=== PATIENT | male | born 1935 | race Native Hawaiian/Other Pacific Islander ===

== ENCOUNTER 2016-10-07 07:50 | Outpatient (CLI) | payer OTHER ==
[~2016-10-07 07:50] MED LIST: ALPR0.5T24 PO; AMOX500C85 PO; FLUT0.05 NAS; GUAI600T70 PO; NEXIUM40 M1 OR; PAXIL10 MG PO
== END 2016-10-07 19:19 | disposition home or self-care (01) ==
LOC: LABW 07:50
PROVIDERS: Internal Medicine
DX: I25.10 Atherosclerotic heart disease of native coronary artery without angina pectoris (principal)
CPT/HCPCS: 36415; 80061

== ENCOUNTER 2017-04-15 14:49 | Outpatient (CLI) | payer OTHER ==
[2017-04-15 15:52] LABS: PLATELET COUNT 154 K/uL (142-355)
[2017-04-15 16:24] LABS: POTASSIUM 4.9 mmol/L (3.6-5.2); SODIUM 137 mmol/L (136-145)
== END 2017-04-15 19:14 | disposition home or self-care (01) ==
LOC: LAB 14:49
PROVIDERS: Internal Medicine
DX: I25.10 Atherosclerotic heart disease of native coronary artery without angina pectoris (principal); F03.90 Unspecified dementia, unspecified severity, without behavioral disturbance, psychotic disturbance, mood disturbance, and anxiety
CPT/HCPCS: 80053; 80061; 81000; 84443; 85027

== ENCOUNTER 2017-12-29 08:21 | Outpatient (CLI) | payer OTHER ==
[2017-12-29 08:59] LABS: PLATELET COUNT 151 K/uL (142-355)
== END 2017-12-29 19:47 | disposition home or self-care (01) ==
LOC: LABW 08:21
PROVIDERS: Internal Medicine
DX: I25.10 Atherosclerotic heart disease of native coronary artery without angina pectoris (principal); Z79.899 Other long term (current) drug therapy; Z51.81 Encounter for therapeutic drug level monitoring
CPT/HCPCS: 36415; 80053; 80061; 81000; 84439; 84443; 85027

== ENCOUNTER 2018-10-29 08:13 | Outpatient (CLI) | payer OTHER ==
[2018-10-29 09:11] LABS: PLATELET COUNT 192 K/uL (142-355)
[2018-10-29 09:30] LABS: POTASSIUM 4.2 mmol/L (3.6-5.2)
== END 2018-10-29 21:39 | disposition home or self-care (01) ==
LOC: LABW 08:13
PROVIDERS: Internal Medicine
DX: I25.10 Atherosclerotic heart disease of native coronary artery without angina pectoris (principal); F03.90 Unspecified dementia, unspecified severity, without behavioral disturbance, psychotic disturbance, mood disturbance, and anxiety; Z79.899 Other long term (current) drug therapy
CPT/HCPCS: 36415; 80053; 80061; 81000; 84439; 84443; 85027

== ENCOUNTER 2019-05-03 07:24 | Outpatient (CLI) | payer OTHER ==
[2019-05-03 07:51] LABS: PLATELET COUNT 156 K/uL (142-355)
== END 2019-05-03 19:21 | disposition home or self-care (01) ==
LOC: LABW 07:24
PROVIDERS: Internal Medicine
DX: Z00.00 Encounter for general adult medical examination without abnormal findings (principal); Z79.899 Other long term (current) drug therapy
CPT/HCPCS: 36415; 80053; 80061; 81000; 84439; 84443; 85027

== ENCOUNTER → 2019-09-21 | Outpatient (CLI) | payer OTHER ==
[~2019-09-21] MED LIST changes: +ALPR0.2566 PO; +CASODEX50 MG PO; +CENTRUM ADULTS1 TAB PO; +ESOMEPRAZOLE MA40 M1 PO; +FISH OIL1000 M1 PO; +GABA400C2 PO; +MEMA5TAB PO
== END ==
LOC: RAD 09:00
DX: Z04.6 Encounter for general psychiatric examination, requested by authority (principal)
CPT/HCPCS: 93005

== ENCOUNTER 2019-10-07 08:27 | Emergency (ER) | payer OTHER ==
[~2019-10-07] VITALS: Ht 175.3 cm; Wt 74.4 kg
[2019-10-07 08:47] VITALS: TEMP 98.1
[2019-10-07 09:22] LABS: POTASSIUM 4.1 mmol/L (3.6-5.2); SODIUM 136 mmol/L (136-145)
[2019-10-07 09:25] LABS: PLATELET COUNT 136 K/uL (142-355)
[2019-10-07 10:09] VITALS: BP 154/71
== END 2019-10-07 10:09 | disposition home or self-care (01) ==
LOC: ED 08:27
PROVIDERS: Emergency Medicine
DX: E86.0 Dehydration (principal); T50.995A Adverse effect of other drugs, medicaments and biological substances, initial encounter; R00.1 Bradycardia, unspecified; I45.19 Other right bundle-branch block; Y92.89 Other specified places as the place of occurrence of the external cause
CPT/HCPCS: 80053; 81000; 82550; 83735; 83880; 84484; 85027; 87502; 93005; 99283

== ENCOUNTER 2020-01-04 11:05 | Outpatient (CLI) | payer OTHER ==
[2020-01-04 12:20] LABS: POTASSIUM 4.1 mmol/L (3.6-5.2)
== END 2020-01-04 20:06 | disposition home or self-care (01) ==
LOC: LAB 11:05
PROVIDERS: Family Medicine
DX: K21.9 Gastro-esophageal reflux disease without esophagitis (principal); G30.9 Alzheimer's disease, unspecified; F02.81 Dementia in other diseases classified elsewhere, unspecified severity, with behavioral disturbance; F32.9 Major depressive disorder, single episode, unspecified; R42 Dizziness and giddiness; R26.81 Unsteadiness on feet; R60.0 Localized edema; H61.22 Impacted cerumen, left ear; L57.0 Actinic keratosis; Z91.81 History of falling; E55.9 Vitamin D deficiency, unspecified; Z79.899 Other long term (current) drug therapy
CPT/HCPCS: 80053; 80061; 81000; 82306; 83036; 84439; 84443

== ENCOUNTER 2020-03-09 10:02 | Outpatient (CLI) | payer OTHER ==
[2020-03-09 10:37] LABS: PLATELET COUNT 159 K/uL (142-355)
[2020-03-09 11:05] LABS: POTASSIUM 4.1 mmol/L (3.6-5.2)
== END 2020-03-09 21:07 | disposition home or self-care (01) ==
LOC: LAB 10:02
PROVIDERS: Nurse Practitioner Family
DX: R21 Rash and other nonspecific skin eruption (principal); Z79.899 Other long term (current) drug therapy
CPT/HCPCS: 80053; 82784; 85027

== ENCOUNTER 2020-04-16 10:27 | Emergency (ER) | payer OTHER ==
[~2020-04-16] VITALS: Ht 175.3 cm; Wt 74.4 kg
[2020-04-16 10:30] VITALS: TEMP 98.6
[2020-04-16 11:55] LABS: PLATELET COUNT 153 K/uL (142-355)
[2020-04-16 12:01] LABS: POTASSIUM 3.9 mmol/L (3.6-5.2); SODIUM 135 mmol/L (136-145)
[2020-04-16 13:10] VITALS: BP 124/74
== END 2020-04-16 13:17 | disposition home or self-care (01) ==
LOC: ED 10:27
PROVIDERS: Emergency Medicine Emergency Medical Services
DX: R07.89 Other chest pain (principal)
CPT/HCPCS: 80053; 84484; 85027; 93005; 99283

== ENCOUNTER 2020-08-22 11:11 | Outpatient (CLI) | payer OTHER ==
[2020-08-22 11:36] LABS: PLATELET COUNT 140 K/uL (142-355)
[2020-08-22 11:58] LABS: POTASSIUM 4.3 mmol/L (3.6-5.2)
== END 2020-08-22 20:57 | disposition home or self-care (01) ==
LOC: LAB 11:11
PROVIDERS: ATTEND Physician Assistant
DX: Z00.00 Encounter for general adult medical examination without abnormal findings (principal); G30.9 Alzheimer's disease, unspecified; E53.8 Deficiency of other specified B group vitamins; N40.0 Benign prostatic hyperplasia without lower urinary tract symptoms; Z79.899 Other long term (current) drug therapy
CPT/HCPCS: 80053; 80061; 82607; 83036; 84153; 85027

== ENCOUNTER 2021-01-24 17:40 | Inpatient (IN) | payer OTHER ==
[~2021-01-24] VITALS: Ht 177.8 cm; Wt 67.7 kg
--- NOTE | 2021-01-24 17:50 | NUR ---
RECEIVED Pt. VIA STRETCHER TO ROOM 102 FROM [facility] FOR SWING BED.
[2021-01-24 18:32] VITALS: BP 132/70; TEMP 97.5; Ht 177.8 cm; Wt 67.7 kg
[2021-01-24 20:23] VITALS: BP 133/64; TEMP 97.3
--- NOTE | 2021-01-25 01:41 | NUR ---
LATE ENTRY: 1900 MAKING ROUND ON THE PATIENT. HELPED PATIETN USE THE URINAL WITH VERBAL COACHING A MINIMAL ASSIST. PATIENT HAS NO SKIN TEARS BUT HTERE ARE REDDINED AND DISCOLORED AREAS MAINLY ON THE ARMS AND CHEST. PATIENT DENIES ANY PAIN. PATIETN HEART AND LUNG SOUNDS ARE WNL. BOWL SOUNDS WNL. BED ALARM ON.
--- NOTE | 2021-01-25 01:43 | NUR ---
LATE ENTRY: 01/24/21 AT 2130 PATIENT WAS ATTEMPTING TO UNDRESS. I GUIDED PATIENT BACK INTO HIS GOWN. PATIENT WAS ALSO PUT INTO ANOTHER BRIEF. PATIENT RECIEVED HIS PM MEDICATIONS AND WAS TUCKED BACK INTO BED. PATIENT DENIES ANY PAIN.
--- NOTE | 2021-01-25 01:46 | NUR ---
LATE ENTRY; 01/25/21 0000. PATIETN IS RESTING QUIETLY, EYES CLOSED AND BREATHING IS REGULAR NON LABORED
--- NOTE | 2021-01-25 03:29 | NUR ---
PATIENT WAS ATTEMPTING TO GET OUT OF BED AND PULL HIS CLOTHES AND BRIEF OFF. THE PATIENT WAS HELPED USE THE URINAL,. THE PATIENT TORE SOME SKIN ON HIS LEFT EAR LOBE WHEN ATTEMPTING TO PULL OFF HIS GOWN. SITE HAS BEEN CLEANED.
--- NOTE | 2021-01-25 06:24 | NUR ---
patient is resting quietly. patient denies any pain but is still pleasently confused. patient knows name but not place or reason for being here.
[2021-01-25 08:00] VITALS: BP 111/55; TEMP 97.8
[2021-01-25 19:00] VITALS: BP 128/74; TEMP 97.3
--- NOTE | 2021-01-25 23:28 | NUR ---
PATIENT WAS HELPED TO USE THE URINAL. THE PATIENT NEEDED COACHING AND REDIRECTING. THE PATIENT HAS MODERATE MOVEMENT IN THE BED BUT NEEDS HELP TO BE PULLED TO A SITTING POSITION. THE PATIENT IS CONFUSED AND ONLY ORINED TO HIMSELF. PATIENT STATES, "IM AT THE SELL AND ILL SELL YOU THOSE PAINTING FOR 500 DOLLARS." WRITED ATTEMPTED TO REORIENT PATIENT.
--- NOTE | 2021-01-26 00:43 | NUR ---
patient asked for prn pain medication for her back pain. ariana eas given medication and repositioned in bed.
--- NOTE | 2021-01-26 05:20 | NUR ---
PATIENT IS RESTING QUIETLY IN BED. EYES CLOSED AND BREATHING IS REGULAR NON LABORED
--- NOTE | 2021-01-26 06:34 | NUR ---
PATIENT WAS CHANGED, BARRIER CREME APPLIED. PATIENT REPOSITIONED
[2021-01-26 08:00] VITALS: BP 99/61; TEMP 98
[2021-01-26 20:00] VITALS: BP 103/62; TEMP 98
--- NOTE | 2021-01-26 20:21 | NUR ---
BED ALARM SOUNDED, PT AWAKE AND VERY CONFUSED SITTING UP IN BED LOOKING FOR HIS . REORIENTED BUT PT REMAINS CONFUSED. RESP RATE NONLABORED, ON ROOM AIR, DENIES ANY PAIN, NO S/S OF ACUTE DISTRESS NOTED, RAILS UP, BED IN LOW POSITION WITH ALARM ON, CALL LIGHT IN REACH.
--- NOTE | 2021-01-26 21:15 | NUR ---
PT RESTING WITH EYES CLOSED, AROUSES TO JUNIOR ART DIRECTOR TOUCHING HIM AND CALLING HIS NAME, DENIES ANY PROBLEMS OR PAIN AT THIS TIME. GAVE NIGHTLY PO MEDS WHOLE, PT HELD WATER AND DRANK PER SELF, NO S/S OF ASPIRATION NOTED, HOB REMAINS ELEVATED, WILL MONITOR CLOSELY, RAILS UP, BED IN LOW POSITION, CALL LIGHT IN REACH ENCOURAGED TO CALL NEEDED, BED ALARM ON.
--- NOTE | 2021-01-26 23:08 | NUR ---
PT FOUND RESTING IN BED WITH EYES CLOSED, NO S/S OF PAIN OR DISTRESS NOTED, RESP RATE NONLABORED, ON ROOM AIR, AROUSED BRIEFLY AND DENIES ANY PROBLEMS, WILL MONITOR CLOSELY, RAILS UP X3, BED IN LOW POSITION WITH ALARM ON, CALL LIGHT IN REACH, ENCOURAGED TO CALL NEEDED.
--- NOTE | 2021-01-27 02:00 | NUR ---
PT AWAKE LAYING IN BED WITH NO S/S OF PAIN OR DISTRESS NOTED, RESP RATE NONLABORED, ON ROOM AIR, WILL MONITOR CLOSELY, RAILS UP X3, BED IN LOW POSITION WITH ALARM ON, CALL LIGHT IN REACH, ENCOURAGED TO CALL NEEDED.
--- NOTE | 2021-01-27 02:30 | NUR ---
BED ALARM SOUNDED PT FOUND SITTING UP ON SIDE OF BED CONFUSED, PT REORIENTED BUT REMAINS CONFUSED, RESP RATE NONLABORED, ON ROOM AIR. STAFF ASSISTED PT TO STAND AT BED AND MOVE UP IN BED PT WAS ABLE TO SLIDE HIS BODY UP IN BED VERY SLOWLY AND WEAKNESS NOTED. GAVE FEW SIPS OF WATER WITH PROBLEMS, WILL MONITOR CLOSELY, RAILS UP X3, BED IN LOW POSITION WITH ALARM ON, CALL LIGHT IN REACH, ENCOURAGED TO CALL NEEDED. PT ASKING WHAT TIME IT WAS.
--- NOTE | 2021-01-27 04:00 | NUR ---
RESTING WITH EYES CLOSED, NO S/S OF PAIN OR DISTRESS NOTED. BED ALARM ON, RAILS UP X3, CALL LIGHT IN REACH.
[2021-01-27 08:00] VITALS: BP 91/46; TEMP 98.1
--- NOTE | 2021-01-27 09:00 | NUR ---
PATRICA, PT AT PT'S BEDSIDE. PT UP IN CHAIR AT BEDSIDE WITH CHAIR ALARM ON PER ROSE PT.
--- NOTE | 2021-01-27 11:15 | NUR ---
JERMAINE, OT IN TO SEE PT AT THIS TIME.
--- NOTE | 2021-01-27 15:23 | NUR ---
PT NOTED TO BE LAYING ON RIGHT SIDE RESTING QUIETLY WITH EYES CLOSED. NAD NOTED. PT'S TV IS ON.
[2021-01-27 20:00] VITALS: BP 107/53; TEMP 97.8
--- NOTE | 2021-01-27 20:58 | NUR ---
PT CONTINUES TO RESTING IN POSITION OF COMFORT IN BED WITH EYES CLOSED, NO S/S OF PAIN OR DISTRESS NOTED, AROUSES TO HEALTH ADVISOR CALLING HIS NAME AND DENIES ANY PROBLEMS. GAVE NIGHTLY MEDICATIONS(PILLS WHOLE) WITH NO PROBLEMS, PT HELD HIS DRINK PER SELF. DENIES ANY NEEDS AT THIS TIME, ORIENTED TO PERSON/SELF AND PLACE AT TIMES. ENCOURAGED TO CALL NEEDED OR FOR ASSIST TO USE BATHROOM, RAILS UP X3, BED IN LOW POSITION WITH ALARM ON, CALL LIGHT IN REACH, WILL MONITOR. LUNGS CLEAR, BS+, RADIAL PULSES INTACT.
--- NOTE | 2021-01-27 22:30 | NUR ---
RESTING WITH EYES CLOSED, NO S/S OF PAIN OR DISTRESS NOTED, RESP RATE NONLABORED, ON ROOM AIR, PT IN BED WITH BED IN LOW POSITION AND ALARM ON, RAILS UP X3, CALL LIGHT IN REACH, WILL MONITOR CLOSELY.
--- NOTE | 2021-01-28 01:00 | NUR ---
PT AWAKE WITH NO ACUTE DISTRESS NOTED, PT FINANCIAL ANALYST AND NURSE AT BEDSIDE PULLING PT UP IN BED, RESP RATE NONLABORED, ON ROOM AIR, NO S/S OF PAIN OR DISTRESS, WILL MONITOR, RAILS UP, BED IN LOW POSITION WITH ALARM ON, FALL PRECAUTIONS IN USE, ENCOURAGED TO CALL NEEDED, CALL LIGHT IN REACH.
--- NOTE | 2021-01-28 03:00 | NUR ---
RESTING WITH EYES CLOSED, NO S/S OF DISTRESS NOTED, WILL MONITOR CLOSELY.
--- NOTE | 2021-01-28 04:50 | NUR ---
RESTING IN BED WITH EYES CLOSED, NO S/S OF PAIN OR DISTRESS NOTED, RESP RATE NONLABORED, ON ROOM AIR, WILL MONITOR CLOSELY, RAILS UP, BED IN LOW POSITION WITH ALARM ON, CALL LIGHT IN REACH.
[2021-01-28 08:00] VITALS: BP 109/52; TEMP 97.8
--- NOTE | 2021-01-28 09:45 | NUR ---
PT NOTED TO BE DROWSY AND DID NOT EAT BREAKFAST. PT ABLE TO WAKE UP ENOUGH TO TAKE HIS MEDS AND DRINK HALF OF A STRAWBERRY ENSURE.
[2021-01-28 20:00] VITALS: BP 108/54; TEMP 97.9
--- NOTE | 2021-01-28 21:34 | NUR ---
PT FOUND RESTING WITH EYES CLOSED, NO S/S OF PAIN OR DISTRESS NOTED, AROUSES EASILY AND DENIES ANY PROBLEMS, RESP RATE NONLABORED ON ROOM AIR. NIGHTLY PO MEDS GIVEN WHOLE, PT HELD HIS CUP OF WATER AND HAD MINIMAL ASSIST TO TAKE MEDS OUT OF MED CUP, NO S/S OF ASPIRATION NOTED, HOB REMAINS ELEVATED, ENCOURAGED TO CALL NEEDED, RAILS UP X3, BED IN LOW POSITION WITH ALARM ON, CALL LIGHT IN REACH.
--- NOTE | 2021-01-28 22:48 | NUR ---
BED ALARM SOUNDED, PT HAS LEGS OUT OF COVERS SLIDING THEM OFF SIDE OF BED, STATES HE NEEDS TO USE THE "BOTTLE". ASSISTED PT WITH MINIMAL ASSIST TO USE URINAL SITTING UP IN BED(PT NEEDED HELP GETTING HIS PJ PANTS, PT HELD URINAL AND URINATED PER SELF), URINATED 100ML CLEAR MEDIUM YELLOW URINE. PT PULLED UP IN BED X 2 NURSES AND HOB ELEVATED PER REQUEST, DENIES ANY OTHER NEEDS OR PROBLEMS, RAILS UP X 3, BED IN LOW POSITION WITH ALARM ON, CALL LIGHT IN REACH, ENCOURAGED TO CALL NEEDED OR FOR ASSIST TO USE BATHROOM. PT TALKING WITH STAFF AND JOKING AROUND.
--- NOTE | 2021-01-29 00:40 | NUR ---
RESTING IN BED WITH EYES CLOSED, NO S/S OF PAIN OR DISTRESS NOTED, RESP RATE NONLABORED, ON ROOM AIR, FALL PRECAUTIONS IN USE, WILL MONITOR CLOSELY, RAILS UP X3, BED IN LOW POSITION WITH ALARM ON, CALL LIGHT IN REACH.
--- NOTE | 2021-01-29 05:10 | NUR ---
RESTING IN BED WITH NO S/S OF DISTRESS NOTED, RESP RATE NONLABORED, ON ROOM AIR, WILL MONITOR CLOSELY, RAILS U X3, BED ALARM ON, CALL LIGHT IN REACH.
[2021-01-29 08:00] VITALS: BP 112/66; TEMP 97.5
[2021-01-29 08:20] VITALS: BP 112/66; TEMP 97.5
--- NOTE | 2021-01-29 12:05 | NUR ---
LATE ENTRIES: 0815 PATIENT IN SEMI FOWLERS POSITION WATCHING TV. RESPIRATIONS EVEN AND NONLABORED AT THIS TIME. PATIENT DENIES ANY PAIN, NEEDS OR C/O. PT ON FALL PRECAUTION WITH BED ALARM ON AND SIDE RAILS UP X2, CALL LIGHT WITHIN REACH AND PATIENT INSTRUCTED TO CALL FOR ANY ASSISTANCE OR NEEDS. PT V/O UNDERSTANDING. 0910 AM MEDICATIONS GIVEN TO PATIENT WHOLE AND PATIENT TOLERATED WELL. BED IN HIGH FOWLERS POSITION, URINAL ON BEDSIDE TABLE AND WITHIN REACH BY PATIENT, SIDE RAILS UP X2, PATIENT DENIES NEED TO USE BSC AT THIS TIME. PATIENT INSTRUCTED ON USE OF CALL LIGHT AND TO CALL FOR ANY ASSISTANCE OR NEEDS, PT V/O UNDERSTANDING. PATIENT WATCHING [employer] TV CHANNEL. QUESTIONED PATIENT IF HE WOULD LIKE MARKETING OFFICER TO FIND A DIFFERENT TV CHANNEL FOR HIM, PATIENT RESPONDED "NO, IT'S OK". PATIENT IS PLEASANTLY CONFUSED AND NEEDS CONTINUOUS REMINDING HE IS IN THE HOSPITAL HE REPEATEDLY TELLS STAFF HE NEEDS TO GO HOME OR [place]. 1205 CHAIR ALARM SOUNDED, PATIENT ATTEMPTED TO GET OUT OF CHAIR. QUESTIONED PATIENT V/O HE "HAD TO GO HOME AND TAKE CARE OF THINGS". REMINDED PATIENT HE IS IN THE HOSPITAL RECEIVING THERAPY. PATIENT SAID AGAIN "I HAVE TO GO HOME". I TALKED TO PATIENT OF THE URGENCY TO GO HOME AND HE V/O HIS IS AT HOME. I REMINDED PATIENT HE WAS ADMITTED TO THE FACILITY FOR THERAPY TO MAKE HIM STRONGER IN HOPES OF RETURNING HOME AND CARING FOR HIMSELF AND HIS . PROVIDED PATIENT AN ENSURE AT THIS TIME AND ENCOURAGED PATIENT TO DRINK SAME.
--- NOTE | 2021-01-29 16:40 | NUR ---
DRESSING TO RUE REMOVED, SKIN TEAR CLEANED WITH NS AND NO BLEEDING OR DRAINAGE NOTED TO SITE. TELFA PAD APPLIED TO SKIN TEAR, WRAPPED WITH GAUZE AND SECURED WITH TAPE. DRESSING REMOVED FROM RUE AND NO WOUND NOTED.
--- NOTE | 2021-01-29 16:50 | NUR ---
PATIENT'S GRANDDAUGHTER AT BEDSIDE. PATIENT REMAINS PLEASANTLY CONFUSED.
[2021-01-29 19:30] VITALS: BP 91/4; TEMP 97.8
--- NOTE | 2021-01-29 22:27 | NUR ---
PATIENT WAS ASSESED AT 1900. PATIENT BREATH SOUNDS ARE DINISHED WITH AUDIABLE GIRGLE. PATIENT IN HIGH FOWLERS. PATIENT BREATHING IS SHALLOW BUT NON LABORED. PATIENT IS NOT RESPONSIVE TO VOICE . PATIENT WILL SLIGHTLY MOVE WHEN FACE LIGHTLY TOUCHED. PATIENT HAS ASCARIA THROUGHOUT. PATIENT RADIAL AND PEDAL PULSES ARE WEAK. FAMILY AT BEDSIDE REFUSED VITALS TO BE TAKEN BUT RESPIRATIONS WERE 20 BPM. PATIEN WAS NOT GRIMACING OR CRYING OUT. FAMILY WAS EDUCATED AT BEDSIDE ABOUT THE PROCESS. PATIENT S FAMILY VOICED UNDERSTANDING. PATIENT BOWL SOUNDS ARE HYPOACTIVE. PATIENT HAS A PUREWICK ATTACHED TO SUCTION
--- NOTE | 2021-01-30 01:56 | NUR ---
PATIENT HAS GOTTEN UP AND ALMOST OUT OF THE BED FROM [id number]. THE FIRST TIME THE PATIENT WAS A 2 PERSON ASIST TO THE [facility]. WITHIN 10 MINUTES THE PATIENT WAS UP AND ASKING FOR HIS "WORK BOOTS." THE NURSE ATTEMPTED TO REORIENT THE PATIENT AND HELP HIM BACK IN BED. THE 3RD TIME THE PATIENT WAS UP ON THE SIDE OF THE BED AND THE PATIENT STATED," I NEED MY WORK BOOTS. I HAVE TO GO HAUL SOME DIRT. AND GET SOME POSTS TOO." WRITTER ATTEMPED TO REORIENT THE PATIENT TO THE TIME AND PLACE BUT THE PATIENT DIDNOT ANSWER. THE PATIENT WAS TUCKED BACK IN BED WITH THE BED ALARM ON. PATIENT DENIES ANY PAIN
--- NOTE | 2021-01-30 02:31 | NUR ---
PATIENT IS NOW RESTING IN BED, EYES CLOSED. BREATHING IS REGULAR AND NON LABORED
--- NOTE | 2021-01-30 05:16 | NUR ---
PATIENT IS RESTING QUIETLY , BREATHING IS REGULAR AND SHALLOW. HEART RATE IN THE 116-125
[2021-01-30 08:00] VITALS: BP 130/61; TEMP 97.5
--- NOTE | 2021-01-30 18:45 | NUR ---
PATIENT SPILLED TEA ON FLOOR AND SELF. PATIENT HAD URINATED IN CUP ON BEDSIDE TABLE. PATIENT CLEANED AND PLACED IN BED. FLOOR CLEANED. CALL LIGHT WITHIN REACH.
[2021-01-30 19:00] VITALS: BP 84/49; TEMP 97.4
--- NOTE | 2021-01-30 19:45 | NUR ---
PT. EXPERIENCING PERIODS OF FEAR AND NOT WANTING TO BE LEFT ALONE. PT STATES "SOMEBODY WILL LAURA ME IF YOU LEAVE". TALKED PT DOWN AT THIS TIME AND PT. IN NO DISTRESS ONCE CARDIOLOGY TEACHER EXITED ROOM.
--- NOTE | 2021-01-31 07:50 | NUR ---
IN TO CHECK ON PT. PT NOTED TO BE LAYING IN BED IN LF RESTING QUIETLY WITH EYES CLOSED. BREATHING NON LABORED RISE AND FALL OF CHEST NOTED. NAD NOTED. PT'S TV IS ON.
[2021-01-31 08:00] VITALS: BP 109/58; TEMP 97.3
--- NOTE | 2021-01-31 09:15 | NUR ---
KEELY, PCT INFORMED WRITE OF PT HAVING SHALLOW BREATHING AND LOW RESPIRATIONS, ERMA DUNBAR,RN FROM ALSO ALERTED ME TO PT BEING DIFFICULT TO AROUSE, UPON ENTERING PT NOTED TO BE LYING IN HF WITH HEAD TURNED TO LT SIDE, SHALLOW BREATHING NOTED WITH BRADYPNEA, HR RATE 43, WHEN PT AROUSED HR AT 83, O2 SAT 94% ON RA, DR. BARAJAS NOTIFIED AND STATES HE WILL ORDER LABS AND O2 AT 2L, VITALS OBTAINED BP 103/67,HR 63, RESP 12, TEMP 97.3
--- NOTE | 2021-01-31 09:30 | NUR ---
ERMA DUNBAR RN IN UR NOTIFIED PT'S DAUGHTER
--- NOTE | 2021-01-31 09:40 | NUR ---
NOTIFIED BY DUY OCASIO OF PT HR LOW AND NOT WAKING UP TO EAT BREAKFAST. IN TO CHECK ON PT AT THIS TIME. PT'S GRANDDAUGHTER KEILA MALONE AT BEDSIDE. PT'S DAUGHTER HUBERT MALONE ARRIVED AT BEDSIDE. SPOKE WITH BOTH ABOUT PT'S TRAZADONE HAD BEEN RESTARTED ON 01/30/2021 AND I HAD ALREADY SPOKEN WITH ABOUT THIS AND REPORTED PT BEING DROWSY AND UNABLE TO STAY AWAKE. PER DR. BARAJAS WE ARE GOING TO STOP THE TRAZADONE. PT'S FAMILY VERBALIZED UNDERSTANDING STATING "THIS IS WHAT IT HAS DONE TO HIM BFORE"
[2021-01-31 09:57] LABS: PLATELET COUNT 132 K/uL (142-355)
[2021-01-31 10:12] LABS: POTASSIUM 3.5 mmol/L (3.6-5.2)
--- NOTE | 2021-01-31 13:30 | NUR ---
INTO CHECK ON PT. PT'S DAUGHTER AT BEDSIDE. PT LAYING IN BED IN LF RESTING QUIETLY WITH EYES CLOSED. RISE AND FALL OF CHEST NOTED. BREATHING NON LABORED AND EVEN.
--- NOTE | 2021-01-31 15:41 | NUR ---
PT ADDED TO THIS NURSE ASSIGNMENT LIST. PRIMARY NURSE HAD TO LEAVE. REPORT GIVEN BY NURSE Dominique THOMPSON @5050. O2 INTACT VIA NC @2LPM. NAD NOTED. PT IN HIGH FOWLERS POSITION WITH EYES CLOSED.
--- NOTE | 2021-01-31 17:41 | NUR ---
ASSISTED PT TO VOID IN URINAL. PT HAD A BED BATH AND BED LINEN WAS CHANGED. PT CONTINUES TO PULL O2 VIA NC OFF. PLACED BACK ON AT 2LPM. NAD NOTED. PT ALERT AND STATED "ALMOST DONE GIRLS?" DURING BED BATH. DENIES ANY PAIN OR DISCOMFORT.
[2021-01-31 20:00] VITALS: BP 140/92; TEMP 97.8
--- NOTE | 2021-02-01 01:36 | NUR ---
Patient is resting with eyes, in bed, at this time. Patient is alert, but has periods of forgetfulness. He was calm, and in a joking mood, earlier this shift. Took evening meds, but psy meds were held, per hospitalist. Patient uses the urinal, with assistance, and bs commode, with assistance. Disposable briefs are on patient for any periods of incontience. Call light is within reach, and bed alarm is set. No acute distress noted. Will continue to monitor.
[2021-02-01 08:00] VITALS: BP 94/57; TEMP 98
--- NOTE | 2021-02-01 08:00 | NUR ---
RESPONDED TO BED ALARM, PT SITTING UP ON EOB, PT STATES "THE HORN GET GOING OFF AND I WAS GOING TO SPIN AROUND AND STOP IT," PT REORIENTED TO RM AT THIS TIME, NAD NOTED, NONLABORED BREATHING, PT POSTIIONED HISSELF BACK IN THE BED IN LF, MOVED PT UP IN THE BED WITH EXT ASSIST X2, CALL LIGHT PLACED WITHIN REACH, NO FURTHER NEEDS AT THIS TIME
--- NOTE | 2021-02-01 09:15 | NUR ---
I visited with patient last week and he seemed confused and confirmed with Cyndi and talked with her about the patient. He was very pleasant and I use to see him [facility] and sat with his MOM and would eat breakfast with her almost everyday. He has always been a tony and so sweet and nice to work with. He lives at home wiht his . Admitted with paroxyshal atrail fib, acute cystitis w/o hemutaria, AMS, Dementia, Diarrhea, Leukocytosis, Anemia, Cervical neck pain with evidence of disc disease and is an 85YOmale, and is 5'10" at 146.4 lbs. and BMI at 21 and is wnl's and IBW for bev = 166+/-10% (149 to 183 lbs.) and kcal needs x 25 = 1900, x 30 = 2300,x 35 = 2600, and x 40 = 3000 kcal/day, protein needs x .8 to 1.5 = 60 to 113 grams per day and fluids x 25 = 1900, x 30 = 2300, x 35 = 2600 and x 40 = 3000 ml/cc per day. Labs reveal RBC, Hgb, Hct, Alt, MCHC, platelet count, K, T protein, alb, alk po4, Calcium are all decreased and receives a MVI and those elevated are MCV and bilirubin. Also has a PMH of CHF, hyperlipidemia, HTN, Valve insifficiency, Cancer and UTI. All food preferences are honored and so stated ont he diet card and substitutes are offered with all meals. RD available as needed. RD Recommendaitons: 1-Monitot labs 2-PT to work with the patient 3-OT to work with the patient 4-ST to work with the patient as needed 5-add protein 30 ml bid 6-Add Vitamin C 500 mg BID 7-Add an appeite stimulant is eating <75% of meals 8-Add foods high in calcium as milk and diary with all meals if will eat or drink 9-On a 2 gm Na, NCS awith soft meats, may want to limit fluids d/t dx. of CHF but also dx. of UTI and diarrhea and needs increased fluids so make sure hydrated- MD to decide on fluid needs.
--- NOTE | 2021-02-01 09:36 | NUR ---
PT IN LOW FOWLERS POSITION IN BED. CONTINUES TO BE CONFUSED. PT BELIEVES THAT HE HAS TO GO TO WORK, PT STATED "IS IT DAY LIGHT OUTSIDE?,IF IT IS IT'S TIME FOR ME TO GO TO WORK. I NEED TO PUT ON MY CLOTHES." PT SELF FED BREAKFAST. PT CHANGED AND TURNED. DENIES ANY PAIN/DISCOMFORT. NAD NOTED. AM MEDS ADMINISTERED ORDERED WITH NO DIFFICULTY SWALLOWING MEDS.
--- NOTE | 2021-02-01 13:31 | NUR ---
PT DAUGHTER AT BEDSIDE. PT WAS UP IN WHEELCHAIR WITH ASSISTANCE FROM PT. CHAIR ALARM ON WHEELCHAIR. PT ATTEMPTED TO ROLL WHEELCHAIR OUT OF ROOM AND REPLIED "I NEED TO GO AND SEE MY " PT CONSTANTLY TALKED ABOUT AND HOW HE WANTS TO SEE HER. DAUGHTER EXPLAINED TO PT WHY HE COULD NOT SEE HIS TODAY. PT ALERT AND APPEARED TO UNDERSTAND.
--- NOTE | 2021-02-01 14:54 | NUR ---
PER DR BARAJAS RISPERDAL 1MG BID RESTARTED X1 DOSE NOW AND THEN RESUME SCHEDULED. DARWIN REMAINS ON HOLD. SWINGBED WEEKLY MEETING TODAY AT PTS BEDSIDE. PT AWAKE AND ALERT AND GAVE VERBAL INPUT.
--- NOTE | 2021-02-01 17:13 | NUR ---
PT HAS CLIMBED OUT OF BED OVER THE BEDRAILS AND WITH THE BED ALARM ON SEVERAL TIMES TODAY. PT HAD TO BE ASSISTED BACK INTO BED. PT CONFUSED AND VERBALIZES THAT HE HAS TO GET DRESSED AND GO TO WORK OR HE HAS TO "GO DOWN THE STREET AND CHECK ON HIS " PT HAS TO BE REORIENTED. PTS APPETITE HAS DECREASED, ONLY EATS ABOUT 25% OF BREAKFAST AND LUNCH TODAY. OFFERED PT A SNACK BUT PT REFUSES, JUST REPLYS "I'M NOT HUNGRY RIGHT NOW."
[2021-02-01 19:00] VITALS: BP 111/72; TEMP 97.9
--- NOTE | 2021-02-02 04:59 | NUR ---
Patient is resting with eyes closed at this time, but has been up several times this shift, and attempting to get out of bed. He stated, "that he thought that it was day time already". Patient was reoriented to the time and would agree to lay back down. Bed alarm is set. Patient took meds whole, and drank 100 ml of supplemental shake. Patient is assist x 2 to reposition, (move up in the bed), and requires assistance with using using the urinal. Wears briefs for periods of occasional incontience. Patient requires assistance with transferring to the bedside commode, and with eating and drinking. Patient has a red rash betweem the groin and thigh area, and prn, nystatin powder is being applied. No acute distress noted. Bed alarm is on, and call light is within reach. Will continue to monitor.
--- NOTE | 2021-02-02 05:32 | NUR ---
Patient has been resting with eyes closed most of this shift, but does wake up during nursing care. She has right sided paralysis, from previous cva, and incontient of bowel and bladder. She is being turned and repositioned, & checked and changed frequently. Barrier cream is applied to redness noted in groin area. Patient has aphasia, but does attempt occasionally say a single word. Patient is alert and does acknowlege awareness of when being talked to. She is npo at this time, with meds crushed and administered via peg tube. Patient is given glucernia 1.5, 4 x day, with 50 ml of water, before and after feeding. Patient continues to work with skilled therapy services, and has a barium swallow study ordered later this morning. No acute distress noted. Call light is within reach, and bed alarm is set. Will continue to monitor.
[2021-02-02 08:00] VITALS: BP 90/47; TEMP 97.7
--- NOTE | 2021-02-02 09:15 | NUR ---
PATIENT SITTING UP IN BED WITH FEET DANGLING. PATIENT ALERT BUT CONFUSED. LUNG SOUNDS CLEAR AND EQUAL BILATERALLY. BOWEL SOUNDS ACTIVE IN ALL [address] DRESSING IN PLACE TO LEFT FOREARM FROM 01/30/21. DRESSING REMOVED TO FIND A SCABBED SKIN TEAR. LEFT OPEN TO AIR. OT AT BEDSIDE AT THIS TIME.
--- NOTE | 2021-02-02 09:26 | NUR ---
PATIENT UP IN CHAIR. THERAPY WORKING WITH PATIENT. PATIENT TOLERATING WELL. NAD NOTED. CALL LIGHT WITHIN REACH. WILL CONTINUE TO MONITIOR.
--- NOTE | 2021-02-02 14:46 | NUR ---
PATIENT ATTEMPTING TO GET OUT OF BED. PATIENT PLACED IN CHAIR BY WINDOW. PATIENT PROVIDED ICE CREAM AND ENCOURAGED TO STAY IN CHAIR AND USE CALL LIGHT WHEN HE NEEDS TO GET UP.
--- NOTE | 2021-02-02 17:00 | NUR ---
PATIENT BROUGHT TO NURSES STATION IN CHAIR. PATIENT WAS ATTEMPTING TO GET OUT OF CHAIR AND CONTINUOUSLY SET OFF CHAIR ALARM. PATIENT HAS CHAIR ALARM IN PLACE.
[2021-02-02 19:00] VITALS: BP 114/67; TEMP 97.5
--- NOTE | 2021-02-02 21:10 | NUR ---
PT. WAS RESTING QUIETLY WITH EYES CLOSED WHEN DINKEY LOCOMOTIVE OPERATOR ENTERED ROOM. PM MEDS GIVEN AT THIS TIME. PT. TOLERATED WELL AND WAS COOPERATIVE TAKING MEDS. PT. WAS REACTIVE TO VERBAL STIMULI IN A HIGH-FOWLERS POSITION WITH BED IN LOWEST POSITION WITH SIDE RAILS UP TIMES TWO WITH CALL LIGHT WITHIN REACH.
[2021-02-03 08:00] VITALS: BP 115/62; TEMP 97.9
--- NOTE | 2021-02-03 09:30 | NUR ---
THERAPY AT BEDSIDE. NAD NOTED. PATIENT PLACED IN CHAIR. CHAIR ALARM IN PLACE. CALL LIGHT WITHIN REACH.
--- NOTE | 2021-02-03 12:05 | NUR ---
PT ATTEMPTS TO GET OOBX4 WITH DECREASED SAFTEY AWARENESS.UNABLE TO ORIENT PT TO DATE TIME PLACE OR SITUATION. 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 PT ASSISTED TO WC AND MASK PUT ON. PT WAS SAT AT NURSES STATION FOR CLOSE OBSERVATION DUE TO CONCERNS FOR SAFTEY. DAUGHTER HUBERT NOTIFIED AND HER AND HER ARE COMIMNG TO EAT LUNCH WITH PT IN ATTEMPT TO CALM HIM.
--- NOTE | 2021-02-03 15:00 | NUR ---
PCT AND CONTROL SYSTEM COMPUTER SCIENTIST BATHED PATIENT IN CHAIR. PATIENT PARTICIPATED IN 50% OF BATH. PATIENT TOLERATED WELL. PATIENT TIRED AFTER BATH AND PLACED IN BED FOR A NAP.
[2021-02-03 19:00] VITALS: BP 102/72; TEMP 97.9
--- NOTE | 2021-02-03 20:38 | NUR ---
ED PHYSICIAN- DR AMARO NOTIFIED OF PT'S HEART RATE OF 178 DURING VITAL CHECKS AT THIS TIME. INFORMED PHYSICIAN OF PT'S HX OF A-FIB AND CURRENT MEDICATIONS PT IS TAKING. PHYSICIAN INSTRUCTED PHP WEBSITE DEVELOPER TO OBTAIN IV ACCESS AND GIVE METOPROLOL 10 MG IV ONE TIME DOSE FOR TACHYCARDIA. BP IS 107/90 AT THIS TIME. PHYSICIAN INFORMED OF CURRENT VITALS. ORDER NOTED AND CARRIED OUT BY PHP WEBSITE DEVELOPER.
--- NOTE | 2021-02-03 21:35 | NUR ---
NOTIFIED DR. AMARO- ER PHYSICIAN OF PT'S UNSAFE BEHAVIOR CONSTANTLY TRYING TO GET OUT THE BED WITH THE BED ALARM. UPON ENTERING ROOM PT ON BOTH FEET PROCEEDING TO GO "FIND MY TRUCK AND GO HOME". PT STATES "I WANT TO GO SEE KAYLIE ROUSE AND ARTEMIO. PT DISORIENTED AND CONFUSED WHERE PT IS AT. PT. ALSO UNDRESSED HIMSELF AND SAID "HE NEEDED TO GO TO WORK". PHYSICIAN GAVE ORDER FOR TRAZODONE 50 MG PO PRN FOR SLEEP AND REST PM. PHYSICIAN ORDER NOTED AND CARRIED OUT AT THIS TIME.
--- NOTE | 2021-02-04 08:04 | NUR ---
PT ATTEMPTED TO GET OOB AT 0725, 0754, AND AGAIN AT 0759. PT ASSISSTED TO RECLINER WITH MAX ASSIST X2. PT BROUGHT TO NURSES STATION FOR CLOSER OBSERVATION DUE TO SAFTEY CONCERNS
--- NOTE | 2021-02-04 08:21 | NUR ---
SPOKE TO DR BARAJAS REGARDING SAFTEY CONCERNS FOR THIS PT. DR BARAJAS GAVE VERBAL ORDER TO MOVE PT TO ROOM 1129 DUE TO INCREASE IN ATTEMPTS TO GET OOB AND AMBULATE WITHOUT ASSISTANCE.
--- NOTE | 2021-02-04 08:59 | NUR ---
SPOKE TO CHREYL PAREDES DAUGHTER OF THIS PT TO GET APPROVAL TO MOVE THIS PT TO ROOM 1129. MRS. LUNA APPROVED THE MOVE TO ROOM 1129. SHE STATED SHE WOULD BE UP HERE IN A LITTLE WHILE.
--- NOTE | 2021-02-04 10:17 | NUR ---
0930 PT RESTING QUIETLY IN RECLINER IN ROOM 1129 RESP EVEN NO DISTRESS. PT DAUGHTER MRS. LUNA ARRIVED TO VISIT WITH PT FOR A LITTLE WHILE.
--- NOTE | 2021-02-04 10:41 | NUR ---
DAUGHTER LEFT. PT ASSISTED TO BSC TO URINATE AND THEN BACK TO RECLINER WITH MAX ASSIST X2. WITH CHAIR ALARM ON.
--- NOTE | 2021-02-04 11:00 | NUR ---
PATIENT TRANSFERRED TO BED AFTER COMPLAINTS OF A BACK ACHE. PATIENT DRIFTED OFF TO SLEEP. BED ALARM ON.
--- NOTE | 2021-02-04 11:15 | NUR ---
PATIENT WAVED NURSE FROM NURSES STATION. 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 PATIENT ATTEMPTING TO EXIT BED STAATING THAT HE NEEDED TO GO HOME. PATIENT REORIENTED AND PATIENT DISAGREES WITH REORIENTATION. PATIENT APPEARS TO BE BECOMING UPSET.
--- NOTE | 2021-02-04 11:56 | NUR ---
PATIENT ATTEMPTING TO GET OUT OF BED. PATIENT REORIENTED TO SITUATION. CIPHER EXPERT INFORMED PATIENT THAT HIS DAUGHTER HUBERT WOULD BE COMING TO EAT LUNCH WITH HIM. HE BECAME AGITATED BECAUSE HE COULD NOT GET OUT OF BED. HE TOLD CIPHER EXPERT TO GET OUT OF HIS ROOM AND CALL HIS DAUGHTER HUBERT TO COME GET HIM. PATIENT VISIBLY AGITATED. DAUGHTER HUBERT NOTIFIED. SHE STATED THAT SHE WOULD BE ON THE WAY.
--- NOTE | 2021-02-04 12:30 | NUR ---
SKIP GASPAR AT BEDSIDE. PATIENT REQUESTED TO GET OUT OF BED. PATIENT ASSISTED TO CHAIR WITH MAX ASSIST X2. PATIENT REQUESTED TO BE PLACED BY DOOR. PATIENT PLACED BY DOOR. SKIP GASPAR ATTEMPTED TO FEED PATIENT. PATIENT ONLY ATE ABOUT 10% OF TRAY. PATIENT WATCHING TV QUIETLY. PATIENT ATTEMPTED TO EXIT CHAIR REPEATEDLY. CLARK GASPAR REORIENTED PATIENT.
--- NOTE | 2021-02-04 13:30 | NUR ---
PATIENT ATTEMPTING TO EXIT CHAIR. PATIENT REORIENTED TO ENVIRONMENT AND SITUATION.
--- NOTE | 2021-02-04 14:20 | NUR ---
CHAU AT BEDSIDE. PATIENT STILL ATTEMPTING TO EXIT CHAIR. CHAU ENCOURAGING PATIENT TO STAY IN CHAIR.
--- NOTE | 2021-02-04 15:00 | NUR ---
PATIENT TRYING TO GET OUT OF CHAIR NUMEROUS TIMES. GROUP EXERCISE CLASS INSTRUCTOR SITTING IN ROOM WITH PATIENT.
--- NOTE | 2021-02-04 15:18 | NUR ---
PATIENT STATES THAT HE NEEDS TO GO HOME. HE REPEATEDLY ATTEMPTS TO GET OUT OF CHAIR BY HIM SELF. PATEINT REORIENTED THAT HE IS THE [facility] FOR [facility]. HE STATES THAT HE CANT DO ANYTHING WITHOUT PEOPLE TELLING HIM WHAT TO DO. PATIENT TELLS GUEST SERVICES ATTENDANT TO GO ON AND LEAVE HIM ALONE. PATIENT IS VISIBLY AGITATED. PATIENT STATES THAT HE NEEDS TO GO OUTSIDE TO HIS TRUCK. PATIENT REORIENTED THAT HIS TRUCK IS NOT OUTSIDE AND THAT HE IS HERE FOR THERAPY. PATIENT TELLS GUEST SERVICES ATTENDANT TO GO ON.
--- NOTE | 2021-02-04 15:27 | NUR ---
CHIO ATTEMPTS TO EXIT CHAIR AGAIN. REVERSE ENGINEER ADVISED PATIENT THAT HE CANNOT GET UP ON HIS OWN. HE STATES THAT HE CAN. PATIENT REFUSES TO GET BACK IN BED. PATIENT SITTING UP IN CHAIR WATCHIING TELEVISION.
--- NOTE | 2021-02-04 15:48 | NUR ---
PATIENT ATTEMPTS TP GET OUT OF CHAIR AGAIN STATING THAT HE NEEDS TO GET HOME. PATIENT REORIENTED.
--- NOTE | 2021-02-04 16:03 | NUR ---
PATIENT ATTEMPTED TO EXIT CHAIR. PATIENT REORIENTED AND REPOSITIONED.
--- NOTE | 2021-02-04 16:20 | NUR ---
PATIENT ATTEMPTED TO GET OUT OF CHAIR. PATIENT REORIENTED AND REPOSITIONED IN CHAIR.
--- NOTE | 2021-02-04 16:30 | NUR ---
PATIENT FELL ASLEEP. PATIENT AROUSED COUGHING. PATIENT OFFERED WATER. PATIENT TOOK ONE SIP AND REFUSED ANYMORE.
--- NOTE | 2021-02-04 16:45 | NUR ---
PATIENT STATED THAT HE NEEDED TO USE THE BATHROOM. FLORAL ARTIST AND NURSE IDRIS MONSON LPN ATTEMPTED TO TRANSFER PATIENT TO [facility]. PATIENT STATED THAT HE DID NOT NEED TO USE BATHROOM ANYMORE. PATIENT REPOSITIONED IN CHAIR WITH CHAIR ALARM IN PLACE.
--- NOTE | 2021-02-04 17:12 | NUR ---
PATIENT ATTEMPTING TO GET OUT OF CHAIR. PATIENT STATES THAT HE IS REFUSING TO STAY HERE TONIGHT. HE NEEDS TO GO HOME TO HIS . PATIENT REORIENTED TO ENVIRONMENT AND SITUATION. PATIENT STATES THAT HE DOES NOT NEED THERAPY OR HELP TO WALK. PATIENT REORIENTED. PATIENT STILL REFUSES TO STAY IN CHAIR. PATIENT LIES BACK IN RECLINER AFTER SOME TIME PASSES.
--- NOTE | 2021-02-04 17:21 | NUR ---
PATIENT ATTEMPTING TO GET OUT OF CHAIR AGAIN. PATIENT REORIENTED BUT REFUSES TO STAY IN HOSPITAL. PATIENT REPOSITIONED IN CHAIR AND PLACED BY WINDOW TO LOOK OUTSIDE. PATIENT WATCHING TV AT THIS TIME.
--- NOTE | 2021-02-04 18:37 | NUR ---
SINCE 1744, PATIENT HAS BEEN SITTING IN CHAIR BY WINDOW RESTING. PATIENT IS STILL ADIMANT THAT HE WILL BE GOING HOME TONIGHT WHEN IT STOPS RAINING. PATIENT HAS BEEN REORIENTED. PATIENT STILL WANTS TO GO HOME.
[2021-02-04 19:00] VITALS: BP 93/63; TEMP 97.6
--- NOTE | 2021-02-04 22:22 | NUR ---
Pt was alert at beginning of shift with numerous attempts to get out of alarm recliner chair without calling for assistance. Pt confused to time, place, and staff names and faces. Pt attempts to stand and alarm goes off and he sits back down. This activity went on for about one and half hour. Trazadone 50mg given with hs meds with good results. Required 3 person assist to help pt to bed. Pt resting with eyes closed at this time. Bed alarm on. Call light in easy reach.
--- NOTE | 2021-02-05 02:12 | NUR ---
Pt resting in bed in low otero's position with eyes closed. No s/s of distress. Call light in easy reach.
--- NOTE | 2021-02-05 04:10 | NUR ---
Pt continues to rest with eyes closed. Pt noted with snoring respirations at times. Appears to be in no distress. Skin warm and dry. HOB in low otero's position. Bed alarm on.
--- NOTE | 2021-02-05 06:13 | NUR ---
Pt cont to rest in bed with eyes closed. Arouses to touch and verbal stimulation. No s/s of distress. Bed alarm on. Call light in easy reach.
--- NOTE | 2021-02-05 07:15 | NUR ---
TECHNICIAN ANATOMIC PATHOLOGY INFORMED ASBESTOS PIPE SUPERVISOR OF PT TRYING TO GET OOB, UPON ENTERING RM PT ATTEMPING TO SIT UP TO EOB, PT STATES HE DID NOT KNOW HE WAS PLACED INTO A DIFFERENT RM, PT STATES HE NEEDED TO USE THE RESTROOM, ASSISTED PT WITH PULLING DOWN PANTS AND HOLDING URINAL IN PLACE WITH X2 EXTENSIVE ASSIST NEEDED, PT URINATED 5ML OF TEA COLORED URINE, ASSISTED PT WITH LYING BACK IN BED, MOVED PT UP IN BED WITH X2 EXT ASSIST, NO FURTHER NEEDS AT THIS TIME, SIDE RAILS UP X3, CALL LIGHT WITHIN REACH, WILL CONTINUE TO MONITOR
[2021-02-05 08:00] VITALS: BP 92/53; TEMP 97.3
--- NOTE | 2021-02-05 08:45 | NUR ---
ANSWERED BED ALARM, PT SITTING UP ON EOB STATES HE NEEDS TO USE THE RESTROOM, ASSISTED PT WITH PULLING BRIEF DOWN, PT HELD URINAL WITHOUT ASSISTANCE, PT MANUEVERED SELF BACK INTO BED, NO FURTHER NEEDS AT THIS TIME, BED ALARM ON, CALL LIGHT WITHIN REACH
--- NOTE | 2021-02-05 09:13 | NUR ---
PT IN RM WITH PATIENT
--- NOTE | 2021-02-05 10:43 | NUR ---
Family meeting scheduled for 02/04/21 @ 2pm. We can meet in pts room or another location. I spoke with Gera in therapy. I also spoke with Sravani Springer [phone] and Neela Selby [phone] pts daughters who both stated they will be here and i left a voicemail for son Jonah Tang at home [phone] and texted his cell [phone] bc his voicemail was full and i was not able to leave a message. Dr. Jenkins aware and will silas attend.
--- NOTE | 2021-02-05 14:38 | NUR ---
ANSWERED CHAIR ALARM, PT ATTEMPTING TO GET UP STATES HE NEEDS TO USE THE RESTROOM, ASSISTED PT WITH REMOVING BRIEF, PT USED URINAL WITHOUT ASSISTANCE, NO URINE WAS RETURNED, MANEUVERED CHAIR SO PT CAN VISUALIZE THE TV, NO FURTHER NEEDS AT THIS TIME, CALL LIGHT WITHIN REACH, WILL CONTINUE TO MONITOR
--- NOTE | 2021-02-05 15:52 | NUR ---
PT REQUESTING TO GET IN BED, PT AMBULATED TO BED USING WALKER AND LIMITED ASSISTANCE, BRIEF CHANGED AND MOVED PT UP IN BED WITH X2 ASSIST, PLACED CALL LIGHT WITHIN REACH, PT HAS NO NEEDS AT THIS TIME, SIDE RAILS UP X3, WILL CONTINUE TO MONITOR
[2021-02-05 19:44] VITALS: BP 98/60; TEMP 97.7
--- NOTE | 2021-02-05 22:55 | NUR ---
PM MEDS GIVEN TO PT. AT THIS TIME DUE TO PT. RESTING WHEN MEDS WERE SCHEDULED. PT. TOLERATED WELL. PT IN A LOW-FOWLERS POSITION WITH SIDE RAILS UP TIMES TWO WITH BED IN LOWEST POSITION WITH CALL LIGHT WITHIN REACH. SITTER IS AT BEDSIDE.
[2021-02-06 08:00] VITALS: BP 84/60; BP 92/82; TEMP 97.7
--- NOTE | 2021-02-06 09:09 | NUR ---
IN TO GIVE MORNING MEDS. PT WITH PHYSICAL THERAPY AT THIS TIME. TOOK SOME CONVINCING FOR PT TO TAKE AM MEDS. PT SPIT OUT NAMENDA AND THREW IT IN THE TRASH. PT HAS NO COMPLAINTS OR REQUESTS AT THIS TIME. PT IS SITTING UP IN RECLINER CHAIR. CALL LIGHT WITHIN REACH.
--- NOTE | 2021-02-06 14:00 | NUR ---
IN WITH PT, PT'S FAMILY, OT, PT, AND UTILIZATION REVIEW FOR MEETING ABOUT PT.
--- NOTE | 2021-02-06 15:38 | NUR ---
PT SITTING IN RECLINER AT ROOM DOOR. NAD NOTED. PT HAS NO COMPLAINTS OR REQUESTS AT THIS TIME.
--- NOTE | 2021-02-06 18:28 | NUR ---
PT RESTING IN BED WITH EYES CLOSED. NAD NOTED. BED LOW AND LOCKED. SIDE RAILS UP X2. CALL LIGHT WITHIN REACH.
[2021-02-06 19:00] VITALS: BP 100/55; TEMP 97.6
--- NOTE | 2021-02-06 19:25 | NUR ---
Pt resting in bed on left side with eyes closed. No s/s of distress. Pt received bath about an hour ago. Pt's dinner tray still sitting in room untouched. Reported by previous shift pt has had poor appetite. Bed alarm on and call light in reach at this time.
--- NOTE | 2021-02-07 05:42 | NUR ---
Pt alert resting in bed with no c/o. Incontinent episode earlier this shift. Assisted OOB and into chair x1 person assist. Bed linen and brief changed. No s/s of distress noted. Pt resting on right side at this time with call light in easy reach.
[2021-02-07 07:58] VITALS: BP 99/65; TEMP 98.1
--- NOTE | 2021-02-07 08:30 | NUR ---
PATIENT AWAKE AND RESTING IN BED. NAD NOTED. PATIENT BREAKFAST PROVIDED. PATIENT FED HIMSELF. PATIENT RELUCTANT TO TAKE MORNING MEDICATIONS. MORNING MEDS TAKEN WITH MINIMAL DIFFICULTY.
--- NOTE | 2021-02-07 11:43 | NUR ---
PATIENT ASSISTED TO BSC WITH ASSIST X2. PATIENT HAD BOWEL MOVEMENT. PATIENT ASSISTED BACK TO BED WITH ASSIST X2. PATIENT RESTING IN LOW ADMAES'S.
--- NOTE | 2021-02-07 15:51 | NUR ---
PATIENT ATTEMPTED 4 TIMES TO EXIT BED. PATIENT REORIENTED.
[2021-02-07 19:00] VITALS: BP 88/58; TEMP 98.1
--- NOTE | 2021-02-07 21:00 | NUR ---
PM MEDS GIVEN AT THIS TIME. PT. TOLERATED WELL. PT UNCOVERED FROM GOWN AT THIS TIME COMPLAINING OF BEING "HOT". NO S/S OF ACUTE DISTRESS NOTED AT THIS TIME. PT. RESTING WITH SIDE RAILS UP TIMES TWO WITH BED IN LOWEST POSITION WITH CALL LIGHT WITHIN REACH. WILL CONTINUE TO MONITOR.
--- NOTE | 2021-02-08 01:30 | NUR ---
PT. UP TO THE BED SIDE COMMODE AT THIS TIME FOR A SPONGE BATH. COMPLETE LINEN CHANGE DONE AT THIS TIME. NYSTATIN APPLIED TO GROIN AREA FOR ERRYTHEMIC RASH AREAS AROUND THE GROIN AND ANAL REGION. NEW GOWN APPLIED AT THIS TIME. PT. READJUSTED BACK INTO BED IN A LOW FOWLERS POSITION WITH SIDE RAILS UP TIMES THREE WITH CALL LIGHT WITHIN REACH AND BED ALARM SENSITIVITY ACTIVATED.
--- NOTE | 2021-02-08 06:10 | NUR ---
PT. ATTEMPTED THREE TIMES TO EXIT BED AND STATES "I NEED TO GO LAY DOWN DOWN THERE, NOT HERE". PT. REORIENTED TO PLACE AND SITUATION AND PT GETS BACK IN BED AT THIS TIME. PT. BED ALARM ACTIVATED AGAIN.
[2021-02-08 08:00] VITALS: BP 105/65; TEMP 98.1
[2021-02-08 19:00] VITALS: BP 91/59; TEMP 97.9
--- NOTE | 2021-02-08 22:39 | NUR ---
PATIENT IS RESTING QUIETLY. PATIENT DENIES ANY PAIN.
--- NOTE | 2021-02-08 22:44 | NUR ---
PATIENT IS RESTING QUIETLY WITH EYES CLOSED, BREATHING IS REGULAR AND NON LABORED
--- NOTE | 2021-02-09 05:06 | NUR ---
Visited with the resident yesterday and the resdient was very confused. To meet with patient and the IDT team today.
--- NOTE | 2021-02-09 06:06 | NUR ---
LATE ENTRY: 0330 PATIENT IS UP AND TRYING TO GET OUT OF BED. PATIENT STATES, " ARTUR GOT TO GET TO THE SCHOOL OR SOMETHING." I ATTEMPTED TO REORIENT THE PATIENT AND PUT HIM BACK IN BED WITH THE ALARM ON. 0400: PATIENT ATTEMPTED TO GET OUT OF BED AGAIN. I ATTEMPTED TO REORIENT PATIENT. PATIENT WAS GIVEN AN INSURE TO DRINK. PATIENT ONLY DRANK A FEW SIPS. 0500: PATIENT WAS GIVEN A NEWSPAPER AND ENCOURAGED TO DRINK MORE OF HIS SHAKE. HE TOOK A FEW MORE SIPS. 0600: PATIENT IS A MAX ASSIST X2 TO PULL UP THE PATIENT IN BE AND REDRES HIM.
[2021-02-09 08:00] VITALS: BP 103/76; TEMP 98.6
--- NOTE | 2021-02-09 08:23 | NUR ---
PT LAYING SUPINE IN BED WITH EYES CLOSED. NAD NOTED. PT AWAKE AT BEGINING OF SHIFT AND ATTEMPTED TO GET OUT OF BED, BED ALARM ON AND BED RAILS UP. PT CONFUSED, REQUESTED TO GET UP AND PUT ON CLOTHES "IT'S TIME FOR ME TO GO HOME" PT HAD TAKEN HIS GOWN OFF. ASSISTED BY PUTTING GOWN BACK ON AND ASSISTED PT BACK TO BED.
--- NOTE | 2021-02-09 08:30 | NUR ---
SPOKE WITH CHERYL AND HUBERT WHO REQUESTED FOR THE CADIOLOGIST APPOINTMENT TO BE RESCHEDULED UNTIL A DIFFERENT DAY. THE APPOINTMENT WAS RESCHEDULED FOR 02-23-21 AT 11:00 IN [place]. DAUGHTER CHERYL WAS NOTIFIED OF THE APPOINTMENT.
--- NOTE | 2021-02-09 11:37 | NUR ---
PT REQUIRES EXTENSIVE SUPERVISION WHEN GETTING OUT OF BED. BED ALARM ON AT ALL TIMES. PT WILL VOID IN DRINKING CUP OR ANY AVAILABLE CONTAINER AT BEDSIDE. POOR APPETITE. ENCOURAGE PO FLUIDS/ENSURE AND SNACKS BETWEEN MEALS. NAD NOTED. PT CONTNUES TO BE CONFUSED BY THINKING HE'S AT HOME AND HAS TO GO TO WORK.
--- NOTE | 2021-02-09 14:30 | NUR ---
PT LAYING IN BED WITH EYES CLOSED. WILL SLEEP FOR 15-20 MINUTES AT A TIME. CONTINUES TO ATTEMPT TO GET OUT OF BED, STATING "IT'S TIME FOR ME TO GET DRESSED AND GO TO [employer]" OR "I HAVE TO GET READY TO GO TO MY APPOINTMENT" PT CONTINUES TO BE CONFUSED ABOUT HIS LOCATION AND PEOPLE AROUND HIM. PT BECOMES IRRITABLE AND DOESN'T WANT TO COOPARATE WITH STAFF WHEN ATTEMPTING TO GET OUT OF BED BY HIMSELF AND HAS TO BE ASSISTED BACK TO BED. NAD NOTED. PT HAD A BATH THIS MORNING AND BED LINEN CHANGED. CONTINUE TO MONITOR.
--- NOTE | 2021-02-09 16:57 | NUR ---
JOSHNC signed today by son Jonah Tang. Jonah's phone number is [phone]. [facility] at phone number [phone] is to pick Mr. Tang up on Friday02/12/21 before noon and take him home. When [facility] calls to notify this center that they are on the way to pick Mr. Tang up, please notify Mr. Jonah Tang at his home number above. If there is no answer on that number, Mr. Tang's 's number is [phone].
--- NOTE | 2021-02-09 17:02 | NUR ---
02/09/21 1700 BILL [employer] SET UP TRANSPORT FOR PT TO [facility] ON Friday02/12/21 TRANSPORT WILL ARRIVE BEFORE 12 NOON.GRANDDAUGHTER LORI YU NOTIFIED OF THREE HOLDER TO [facility] HIM AT FAMILY REQUEST.
--- NOTE | 2021-02-09 17:03 | NUR ---
Jonah Tang called and reported that [facility] is the hospice agency that his father, Mr. Tang previously used and would like to use the same agency upon discharge.
--- NOTE | 2021-02-09 18:12 | NUR ---
PT IN BED WITH EYES CLOSED. ATTEMPTED TO AWAKE PT TO EAT DINNER BUT PT REMAINED WITH EYES CLOSED. DINNER TRAY SET ASIDE. NAD NOTED. PT UP IN CHAIR MOST OF THE DAY WITH CHAIR ALARM ON. PT MADE SEVERAL ATTEMPTS TO GET UP OUT OF CHAIR. NO C/O PAIN OR DISCOMFORT VOICED THIS SHIFT.
--- NOTE | 2021-02-09 18:19 | NUR ---
ENCOURAGED PO FLUID INTAKE DURING SHIFT BY GIVING PT APPLE JUICE, CRANBERRY JUICED,ENSURE AND WATER TO DRINK HOURLY WHEN PT WAS AWAKE. AND OFFERED SNACKS BETWEEN MEALS. PT WOULD ONLY TAKE A FEW SIPS OF FLUIDS BY MOUTH AND THEN WOULD REPLY "THAT'S ENOUGH FOR NOW"
[2021-02-09 20:00] VITALS: BP 110/62; TEMP 97.8
--- NOTE | 2021-02-09 20:18 | NUR ---
RESTING QUIETLY IN BED WITH EYES CLOSED, NO S/S OF PAIN OR DISTRESS NOTED, WILL MONITOR, RAILS UP X3, BED IN LOW POSITION WITH ALARM ON, CALL LIGHT IN REACH.
--- NOTE | 2021-02-09 20:56 | NUR ---
PT NOW AWAKE WITH NO S/S OF DISTRESS NOTED, GAVE NIGHTLY MEDS WITH WATER NOTE PT HELD DRINK CUP PER SELF AND SENIOR ENERGY MARKET COORDINATOR ASSISTED PT TO GET MEDS INTO HIS MOUTH. SLIGHT COUGHING AFTER TOOK FIRST FEW MEDS BUT NO COUGHING AFTER HE TOOK MORE MEDS WHOLE PO. HOB REMAINS ELEVATED, NOTE PT REPOSITIONS IN BED FROM SIDE TO SIDE PER SELF. WILL MONITOR, RAILS UP X3, BED IN LOW POSITION WITH ALARM ON, CALL LIGHT AND URINAL WITH IN PT'S REACH, ENCOURAGED TO CALL NEEDED. PT CONFUSED AND REORIENTED TO PLACE AND TIME.
--- NOTE | 2021-02-09 21:00 | NUR ---
GAVE PRN TRAZADONE 50MG PO FOR SLEEP.
--- NOTE | 2021-02-09 23:08 | NUR ---
RESTING IN BED ON R SIDE WITH EYES CLOSED, NO S/S OF PAIN OR DISTRESS NOTED, RESP RATE NONLABORED, WILL MONITOR CLOSELY, RAILS UP X3, BED IN LOW POSITION WITH ALARM ON, CALL LIGHT IN REACH.
--- NOTE | 2021-02-10 01:25 | NUR ---
BED ALARM SOUNDED, PT SITTING UP IN BED STATES HE WAS GONNA GET UP TO USE THE BATHROOM. PT REMAINS CONFUSED, REORIENTED OFTEN. ASSISTED PT TO USE URINAL WHILE IN BED, NO S/S OF PAIN OR DISTRESS NOTED, DENIES ANY PROBLEMS. WILL MONITOR CLOSELY, RAILS UP X3, BED IN LOW POSITION WITH ALARM ON, CALL LIGHT IN REACH.
--- NOTE | 2021-02-10 02:55 | NUR ---
PT AROUSES AND ATTEMPTING TO GET OUT OF BED, CONFUSED, REORIENTED TO PLACE AND TIME. STATES HE IS TRYING TO GET HIS PANTS BACK ON. DEPEND FOUND OFF OF PT. NEW DEPEND PLACED ON PT AND PT PULLED UP IN BED X2 STAFF MEMBERS. PT CAN USE BED RAILS AND PULL SELF UP IN BED SLIGHTLY. RESP RATE NONLABORED,DENIES ANY PAIN OR OTHER NEEDS, WILL MONITOR CLOSELY, RAILS UP X3, BED IN LOW POSITION WITH ALARM ON. TELEPHONE CLERK TELEGRAPH OFFICE REMAINS AT BEDSIDE.
--- NOTE | 2021-02-10 05:10 | NUR ---
PT RESTING IN BED WITH EYES CLOSED, NO S/S OF PAIN OR DISTRESS NOTED, RESP RATE NONLABORED, WILL MONITOR CLOSELY, RAILS UP X3, BED IN LOW POSITION WITH ALARM ON, CALL LIGHT IN REACH.
--- NOTE | 2021-02-10 07:30 | NUR ---
PT IN BED IN LOW FOWLERS POSITION WITH EYES CLOSED. WILL OPEN EYES WHEN NAME IS CALLED. NAD NOTED. LUNG SOUNDS CLEAR. NO OPEN WOUNDS NOTED ON PT. NO EDEMA NOTED TO UPPER OR LOWER EXTREMITIES. BOWEL SOUNDS PRESENT X4 AND HYPOACTIVE.
[2021-02-10 08:00] VITALS: BP 122/76; TEMP 97.7
--- NOTE | 2021-02-10 12:23 | NUR ---
PT CONTINUES TO BE CONFUSED ABOUT TIME AND PLACE. CONTINUES TO ATTEMPT TO GET OUT OF BED AND REPLYS "IT'S TIME FOR ME TO GET UP AND GET DRESSED TO GO TO WORK" PT CONTINUES TO TAKE GOWN OFF. PERSONAL T-SHIRT WAS PLACED ON PT AND PT CONTENT. BED ALARM ON AT ALL TIMES. PT COMPLIANT WITH OT AND PT.
--- NOTE | 2021-02-10 13:24 | NUR ---
PT UP IN CHAIR WITH ASSISTANCE FROM PHYSICAL THERAPY. PT GIVEN A LOCAL NEWSPAPER TO LOOK AT,PT REQUESTED A "MAGAZINE OR SOMETHING TO READ" ENCOURAGED PT TO INCREASE FLUID INTAKE BY OFFERING TEA,WATER,ENSURE,CRANBERRY JUICE,AND MILK TO DRINK THROUGHOUT DAY. PT CONTINUES TO ATTEMPT TO GET OUT OF CHAIR, CHAIR ALARM ON. BED LINEN CHANGED AND BED BATH GIVEN. NAD NOTED.
--- NOTE | 2021-02-10 15:13 | NUR ---
PT SITTING UP IN CHAIR WATCHING TV. CHAIR PULLED CLOSER TO TV FOR PT TO SEE CLEARLY. WATER, MILK AND CRACKERS PLACED ON TABLE BESIDE PT. PT WILL DRINK FLUIDS AND EAT SNACK THROUGHOUT DAY. PT SINGING AND TALKING WITH STAFF. CLEAR AND LOGICAL SPEECH. PT MONITORED CLOSELY. CHAIR ALARM ON AT ALL TIMES. NAD NOTED. NO S/S OF PAIN/DISCOMFORT NOTED.
--- NOTE | 2021-02-10 16:43 | NUR ---
PT ASSISTED FROM CHAIR TO BEDSIDE COMMODE. PT REQUIRED 2 PERSON ASSISTANCE. PT HAD BM, STOOL SOFT AND FORMED. NO CONSTIPATION OR DIARRHEA OBSERVED. PT ASSISTED BACK TO BED. NO S/S OF PAIN/DISCOMFORT. NAD NOTED. PT ALERT BUT CONFUSED ABOUT HIS LOCATION AND TIME. BED ALARM ON, SIDE RAILS UP X3, BED LOCKED AND IN LOW POSITION.
[2021-02-10 19:20] VITALS: BP 105/56; TEMP 97.8
--- NOTE | 2021-02-10 20:12 | NUR ---
RESTING QUIETLY IN POSITION OF COMFORT WITH EYES CLOSED, NO S/S OF PAIN OR DISTRESS NOTED, RESP RATE NONLABORED ON ROOM AIR, URINAL WITH IN PT'S REACH, NOTE PT REPOSITIONS IN BED SIDE TO SIDE PER SELF,WILL MONITOR CLOSELY, RAILS UP X3, BED IN LOW POSITION WITH ALARM ON, CALL LIGHT IN REACH, HOB ELEVATED IN LOW ADAMES'S POSITION.
--- NOTE | 2021-02-10 22:41 | NUR ---
PT AWAKE WITH NO ACUTE DISTRESS NOTED, RESP CASSIDY NONLABORED ON ROOM AIR, DENIES ANY PAIN OR PROBLEMS, OFFERED SNACK SINCE PT DID NOT EAT SUPPER BUT PT STATES HE IS NOT HUNGRY. ASSISTED TO USE URINAL, NOTE DARK NIKIA URINE 150ML. GAVE TRAZODONE 50MG PO PRN FOR SLEEP. WILL MONITOR, RAILS UP X3, BED IN LOW POSITION WITH ALARM ON, CALL LIGHT IN REACH. REMAINS CONFUSED TO PLACE AND TIME, REORIENTED OFTEN. ONCE ORIENTED PT FORGETS AND IS DISORIENTED AGAIN WITHIN A FEW MINUTES.
--- NOTE | 2021-02-10 23:00 | NUR ---
PT REMAINS AWAKE AND CONFUSED TO PLACE/TIME REORIENTED OFTEN, NO REACTIONS NOTED TO PRN MEDICATION, WILL MONITOR CLOSELY, RAILS UP X3, BED IN LOW POSITION. CALL LIGHT, URINAL, AND BEDSIDE TABLE WITHIN PT'S REACH.
--- NOTE | 2021-02-11 00:18 | NUR ---
PT RESTING IN BED WITH EYES CLOSED IN LOW ADAMES'S POSITION, NO S/S OF PAIN OR DISTRESS NOTED, RESP RATE NONLABORED, NON SKID SOCKS IN USE, RAILS UP X3, BED IN LOW POSITION WITH ALARM ON, WILL MONITOR CLOSELY.
--- NOTE | 2021-02-11 02:00 | NUR ---
RESTING IN BED WITH EYES CLOSED IN POSITION OF COMFORT, NO S/S OF PAIN OR DISTRESS NOTED, WILL MONITOR CLOSELY, RAILS UP X3, BED IN LOW POSITION WITH ALARM ON, CALL LIGHT IN REACH.
--- NOTE | 2021-02-11 03:52 | NUR ---
RESTING QUIETLY IN BED WITH EYES CLOSED, NO S/S OF PAIN OR DISTRESS NOTED, RESP RATE NONLABORED, WILL MONITOR CLOSELY, RAILS UP X3, BED IN LOW POSITION WITH ALARM ON, CALL LIGHT IN REACH.
--- NOTE | 2021-02-11 04:30 | NUR ---
BED ALARM SOUNDED, PT FOUND SITTING UP ON SIDE OF BED AT FOOT OF BED BETWEEN SIDE RAILS AND END OF BED. PT STATES HE IS "GOING TO BED". CONFUSED TO PLACE/TIME, REORIENTED AT THIS TIME, PT REMAINS CONFUSED. PT ASSISTED UP IN BED PT DOES HOLD ON TO RAILS AND PULL SOME IF YOU HELP HIM GRAB THE RAILS THEN MAKE SURE HIS FEET DO NOT SLIDE HE PUSHES UP IN BED. NOTE DEPEND OFF OF PT AND DEPEND ALONG WITH BED LINENS HAVE URINE ON THEM. CLEANED PRIVATE AREA/GROIN WITH WARM WET CLOTH, APPLIED NYSTATIN POWDER TO RED IRRITATED AREAS IN BILATERAL GROIN AND TO SCROTUM(YEAST LIKE ODOR NOTED TO AREA), DRY DEPEND PLACED ON PT, DRAW SHEET TOP SHEET AND BLANKET CHANGED. PT DENIES ANY OTHER NEEDS OR PROBLEMS AT THIS TIME. RAILS UP X3, BED IN LOW POSITION WITH ALARM ON, CALL LIGHT/URINAL/BEDSIDE TABLE WITHIN PT'S REACH, ENCOURAGED TO CALL NEEDED. WILL MONITOR CLOSELY.
--- NOTE | 2021-02-11 06:20 | NUR ---
BED ALARM SOUNDED, PT FOUND CONFUSED GETTING UP OUT OF BED, STATES HIS COVERS ARE WET. DRAW SHEET AND DEPEND CHANGED DUE TO INCONTINENT VOID. PT CLEANED. GOWN ALSO CHANGED AT THIS TIME. REORIENTED AT THIS TIME. ENCOURAGED TO CALL NEEDED, RAILS UP X3, BED IN LOW POSITION WITH ALARM ON, CALL LIGHT IN REACH, WILL MONITOR CLOSELY.
[2021-02-11 08:00] VITALS: BP 114/84; TEMP 97.4
--- NOTE | 2021-02-11 13:45 | NUR ---
PT NOTED TO HAVE PULLED HIS GOWN OFF AGAIN AND TRYING TO GET UP. UPON ENTERING PT'S ROOM PT STATES "I JUST HAVE TO GET MY BREATH" PT NOTED TO BE BREATHING HEAVILY. CAROL BROTHERS. RN AND MYSELF AT BEDSIDE. UPON ASSESSING PT, PT'S HR NOTED TO BE RAPID. PT PLACED ON TELEMETRY AT THIS TIME. PT'S HR NOTED TO BE 175-178 AT THIS TIME. CAROL BROTHERS RN CALLED DR. LARKIN WHILE AT BEDSIDE. REC'D ORDER TO OBTAIN CBC, CMP, CPK, TROP, EKG, 250CC FLUID BOLUS. PT'S BP NOTED TO BE 95/66, O2 95-97% AT THIS TIME. PT PLACED ON O2 AT 2LPM NC. 20G IV STARTED TO RAC, LABS DRAWN, FLUID BOLUS STARTED PER MD ORDERS
[2021-02-11 14:20] LABS: PLATELET COUNT 168 K/uL (142-355)
[2021-02-11 14:26] LABS: POTASSIUM 3.4 mmol/L (3.6-5.2); SODIUM 135 mmol/L (136-145)
--- NOTE | 2021-02-11 14:35 | NUR ---
DR. LARKIN CALLING PT'S DAUGHTER, HUBERT, TO UPDATE ON PT'S STATUS.
--- NOTE | 2021-02-11 16:15 | NUR ---
PT'S BP NOTED TO BE 110/76 AT THIS TIME. HR 80. PT NOTED TO HAVE IRREGULARY IRREGULAR RHYTHM ON WOODS BOSS. PT RESTING QUIETLY NO DISTRESS NOTED. IVF INFUSING AT THIS TIME WITHOUT DIFFICULTY. PT'S DAUGHTER HUBERT IS HERE AT THIS TIME.
--- NOTE | 2021-02-11 16:35 | NUR ---
PT NOTED TO HAVE A TOTAL OF 500CC NS COMPLETED AT THIS TIME. ORDERS REC'D TO CON'T IVF AT 150ML/HR. NOTIFIED DR. LARKIN THAT PT STILL HAS NOT VOIDED THIS SHIFT, DR. LARKIN STATES "WELL HE IS DRY DRY, JUST CON'T WITH THE FLUIDS AND HE WILL CATCH UP" PT'S IVF CON'T AT THIS TIME AT A RATE OF 150ML/HR.
--- NOTE | 2021-02-11 17:50 | NUR ---
PT CON'T TO BE RESTING QUIETLY IN HF. NO DISTRESS NOTED. PT'S IVF INFUSING AT 150ML/HR PER MD ORDERS WITHOUT DIFFICULTY.
--- NOTE | 2021-02-11 19:40 | NUR ---
RESTING IN BED WITH EYES CLOSED, NO S/S OF PAIN OR DISTRESS NOTED, RESP RATE NONLABORED, SKIN WARM AND DRY, RADIAL PULSES INTACT, TELEMETRY IN USE WITH IRREGULAR RATE 60-70s, 20G IV INTACT TO R AC WITH NS INFUSING AT 150ML/HR WITH NO PROBLEMS NOTED TO SITE. URINAL WITH IN REACH. WILL MONITOR CLOSELY, RAILS UP X3, BED IN LOW POSITION WITH ALARM ON, CALL LIGHT IN REACH.
[2021-02-11 20:00] VITALS: BP 85/51; TEMP 97.9
[2021-02-11 21:50] VITALS: BP 108/74
--- NOTE | 2021-02-11 21:50 | NUR ---
B/P 108/74, HEART RATE 160s NOTED ON TELEMETRY PT DENIES ANY SOB, PAIN, OR OTHER PROBLEMS AT THIS TIME. 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 O2 SAT 96% ON 1LPM VIA NC.
--- NOTE | 2021-02-11 22:02 | NUR ---
CALLED ER AND SPOKE WITH DR. Lorenzo BURNHAM TO INFORM HIM ABOUT PT'S HEART RATE AND RHYTHM, RATE IN 160s. PT DENIES ANY SOB OR PAIN AT THIS TIME. NEW ORDER OBTAINED. GIVE ASPIRIN 162MG PO X 1 DOSE NOW, LOPRESSOR 5MG IVP X 1 DOSE NOW MAY REPEAT IN 5 MINUTES IF RATE IS ABOVE 140, EKG X1 STAT. T.O. R&V DR. BURNHAM/ELHAM GARCIA RN.
--- NOTE | 2021-02-11 22:10 | NUR ---
HEART RATE 160s(SVT) PT STILL DENIES ANY PROBLEMS OR NEEDS AT THIS TIME, MAINLY RESTING WITH EYES CLOSED WITH NO S/S OF ACUTE DISTRESS NOTED. GAVE LOPRESSOR 5MG SLOW IVP X 1 DOSE NOW FOR HEART RATE/RHYTHM. 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
--- NOTE | 2021-02-11 22:20 | NUR ---
LOPRESSOR 5MG SLOW IVP WAS GIVEN AT 2210, HEART RATE ON TELEMETRY IS NOW 80-100 IRREGULAR AT TIMES, O2 SAT 97%, PT RESTING WITH EYES CLOSED, WILL MONITOR CLOSELY.
--- NOTE | 2021-02-11 22:53 | NUR ---
NEW ORDER FOR FLUID BOLUS OF 250ML OF NS THEN CONTINUE NS AT 150ML/HR. ORDER WRITTEN BY DR. BURNHAM IN ER. PT'S B/P ALITTLE LOW(ALSO LOW ON DAY SHIFT). WILL MONITOR CLOSELY.
[2021-02-11 23:45] VITALS: BP 92/45; TEMP 97.6
--- NOTE | 2021-02-12 00:10 | NUR ---
RESTING IN BED WITH EYES CLOSED, NO S/S OF PAIN OR DISTRESS NOTED, RESP RATE NONLABORED, TELEMETRY IN USE WITH IRREGULAR RATE IN LOW 60s, 20G IV INTACT TO R AC WITH NS INFUSING PER ORDER, B/P AT 2400 84/54 WILL MONITOR CLOSELY NOTED B/P LOW ON DAY SHIFT AND WAS MADE AWARE. WILL MONITOR CLOSELY, RAILS UP X3, BED IN LOW POSITION WITH ALARM ON, CALL LIGHT IN REACH.
--- NOTE | 2021-02-12 01:00 | NUR ---
TELEMETRY SHOWING HEART RATE IN 60s IRREGULAR. WILL MONITOR CLOSELY.
[2021-02-12 02:30] VITALS: BP 98/56
--- NOTE | 2021-02-12 02:30 | NUR ---
PT FOUND AWAKE LAYING IN BED WITH NO ACUTE DISTRESS NOTED, DENIES ANY PAIN AT THIS TIME, PT ROLLING TO R SIDE OF BED PUTTING LEGS OVER RAILS WHEN ASKED STATES HE NEEDS TO URINATE, ASSISTED PT TO USE URINAL WHILE LAYING IN BED, NOTE 225 ML DARK NIKIA TEA COLORED URINE NOTED. PT ALSO PULLED DEPEND OFF(FOUND DEPEND UNDER COVERS AT FOOT OF BED). PT CLEANED DUE TO WET WITH URINE, APPLIED NYSTATIN POWDER TO GROIN AND PRIVATE AREA NOTE RED IRRITATED WITH YEASTY SMELL NOTED(AREA IMPROVED SINCE FRIDAY AND LESS RED). DEPEND CHANGED ALONG WITH GOWN FITTED SHEET DRAW SHEET CHUX AND TOP SHEET DUE TO WET WITH URINE. PT PULLED UP X 2 NURSES AND REPOSITIONED IN BED, PT DOES ASSIST BY TRYING TO PUSH WITH HIS FEET AND PULLS ON RAILS. PT VERY WEAK. PT REMAINS CONFUSED, REORIENTED OFTEN. IV INTACT WITH NS INFUSING, RESP RATE NONLABORED, TELEMETRY IN USE, WILL MONITOR, RAILS UP, BED IN LOW POSITION WITH ALARM ON, CALL LIGHT AND URINAL WITH IN PT'S REACH, ENCOURAGED TO CALL NEEDED.
--- NOTE | 2021-02-12 04:29 | NUR ---
PT RESTING IN BED WITH EYES CLOSED IN POSITION OF COMFORT, NO S/S OF PAIN OR DISTRESS NOTED, RESP RATE NONLABORED, TELEMETRY IN USE WITH IRREGULAR RATE RATE 55-65, 20G IV INTACT TO R AC WITH NS INFUSING AT 150ML/HR WITH NO PROBLEMS NOTED TO SITE, O2 SAT 96% ON ROOM AIR, DEPEND DRY, URINAL WITH IN PT'S REACH, WILL MONITOR CLOSELY, RAILS UP X3, BED IN LOW POSITION WITH ALARM ON, CALL LIGHT IN REACH.
--- NOTE | 2021-02-12 09:16 | NUR ---
20 G PERIPHERAL IV TO RAC D/C WITH TIP INTACT.
--- NOTE | 2021-02-12 11:50 | NUR ---
TRANSPORT HERE TO TRANSPORT PATIENT HOME. SON CHAU NOTIFIED OF DEPARTURE.
== END 2021-02-12 11:50 | disposition home health service (06) | DRG 309 ==
LOC: MED/SURG 17:40
PROVIDERS: Internal Medicine Endocrinology, Diabetes & Metabolism; ADMIT Internal Medicine; ATTEND Internal Medicine
DX: I48.0 Paroxysmal atrial fibrillation (principal); N30.00 Acute cystitis without hematuria; R27.8 Other lack of coordination; B95.2 Enterococcus as the cause of diseases classified elsewhere; R41.0 Disorientation, unspecified; R48.8 Other symbolic dysfunctions; M62.81 Muscle weakness (generalized); Z74.1 Need for assistance with personal care; R26.81 Unsteadiness on feet; F03.91 Unspecified dementia, unspecified severity, with behavioral disturbance; Z85.46 Personal history of malignant neoplasm of prostate; D64.9 Anemia, unspecified; R19.5 Other fecal abnormalities; I27.20 Pulmonary hypertension, unspecified; E87.6 Hypokalemia
CPT/HCPCS: 80053; 82550; 84484; 85027; 87081; 87635; 93005; J3490; U0003